=== PATIENT | male | born 1990 | race Caucasian/White ===

== ENCOUNTER → 2016-12-05 | Outpatient (CLI) | payer BC | LOC: COL.RAD 08:50 | DX: K21.9 Gastro-esophageal reflux disease without esophagitis (principal); R11.0 Nausea ==

== ENCOUNTER 2018-08-02 09:02 | Day surgery (SDC) | payer BC ==
[~2018-08-02] VITALS: Ht 180.3 cm; Wt 109.9 kg
[2018-08-02] VITALS (7 sets, daily range): BP systolic 109–121; BP diastolic 74–86; PULSE 59–90; TEMP 97.9–98.4
--- NOTE | 2018-08-02 11:20 | NUR ---
Pt arrived to room 7 from Endo procedure. Pt A/Ox3. Pt walked to chair with x1 assist. Pt denies any pain or nausea. Request juice and pudding at this time. Pt's in room. Report received from HOLLIE Bentley.
--- NOTE | 2018-08-02 11:40 | NUR ---
Pt tolerating juice and pudding. Denies any nausea or pain. Request blueberry muffin at this time. Pt's in room. No complaints at this time. Call light in reach.
--- NOTE | 2018-08-02 12:55 | NUR ---
Discussed discharge instructions, med list and procedure information with pt and pt's . Answered all questions to pt's satisfation. Pt signed discharged paperwork.
--- NOTE | 2018-08-02 13:00 | NUR ---
Pt discharged from [facility]. Pt left unit via wheelchair to private vehicle driven by spouse.
== END 2018-08-02 13:00 | disposition home or self-care (01) ==
LOC: SDCO 09:02
DX: R19.7 Diarrhea, unspecified (principal); K92.1 Melena; K21.9 Gastro-esophageal reflux disease without esophagitis; K29.30 Chronic superficial gastritis without bleeding; Z83.1 Family history of other infectious and parasitic diseases
CPT/HCPCS: J2250; J3010; J7030